=== PATIENT | male | born 1995 | race Hispanic/Latino ===

== ENCOUNTER 2025-03-18 19:10 | Emergency (ER) | payer OTHER ==
[~2025-03-18] VITALS: Ht 172.7 cm; Wt 98.0 kg
[2025-03-18] MEDS ORDERED: CYCLOBENZAPRINE10 MG PO (20:04)
[2025-03-18 20:13] VITALS: BP 161/92
[2025-03-18] MEDS ORDERED: methylPREDNISolone 4 MG HOME.PACK PO ONE (20:15)
[2025-03-18] MEDS ORDERED: CYCLOBENZAPRINE HCL 10 MG HOME.PACK PO ONE (20:15)
== END 2025-03-18 20:14 | disposition home or self-care (01) ==
LOC: ED 19:10
DX: M54.41 Lumbago with sciatica, right side (principal)
CPT/HCPCS: 99283